=== PATIENT | male | born 1970 | race Caucasian/White ===

== ENCOUNTER 2021-02-20 13:19 | Emergency (ER) | payer OTHER ==
[~2021-02-20] VITALS: Ht 175.3 cm; Wt 90.7 kg
[2021-02-20 13:19] VITALS: BP_SYST 101
--- NOTE | 2021-02-20 13:19 | NUR ---
BROUGHT IN BY [facility], PLACED IN BED #5 AND TRIAGED. REPORT GIVEN TO ROSIE
--- NOTE | 2021-02-20 13:20 | NUR ---
Pt bib ambulance from [facility] with report of ALOC and low oxygen saturation. Pt is AAOX3, PERRLA, speaking full sentences, VSS. Pt with dorantes catheter and IV on RFA. Pt reports his head hurts /10 and he hasnt been sleeping much lately. Pt has right arm deficit with decreased bellman strength and inability to hold arm up. Pt on 2L NC resting in gurney attached to monitor no distress noted. GCS 15
--- NOTE | 2021-02-20 13:25 | NUR ---
BLAIR De La Torre at bedside examining patient.
--- NOTE | 2021-02-20 13:58 | NUR ---
Pt family (Son) at bedside. Reports that father is acting normal to his baseline.
[2021-02-20] MEDS ORDERED: NACL 0.9% 1,000 ML IV ONE (14:00)
--- NOTE | 2021-02-20 14:00 | NUR ---
X-ray at bedside.
--- NOTE | 2021-02-20 14:04 | NUR ---
Lab at bedside.
--- NOTE | 2021-02-20 14:15 | NUR ---
Urine collected and sent to lab.
--- NOTE | 2021-02-20 14:23 | NUR ---
ER at bedside examining patient.
[2021-02-20 14:25] LABS: BASOPHILS % (AUTO) 0.4 % (0.0-2.0); EOSINOPHILS # (AUTO) 0.1 K/uL (0.0-0.4); EOSINOPHILS % (AUTO) 2.2 % (0.0-4.0); HEMATOCRIT 36.3 % (36-54); HEMOGLOBIN 12.2 g/dL (14.0-18.0); LYMPHOCYTES # (AUTO) 1.9 K/uL (1.0-5.5); LYMPHOCYTES % (AUTO) 37.7 % (20.5-51.5); MEAN CORPUSCULAR HEMOGLOBIN 30 pg (27-31); MEAN CORPUSCULAR HGB CONC 34 % (32-36); MEAN CORPUSCULAR VOLUME 89 fL (79.0-98.0); MONOCYTES # (AUTO) 0.3 K/uL (0.0-1.0); MONOCYTES % (AUTO) 5.2 % (1.7-9.3); NEUTROPHILS # (AUTO) 2.7 K/uL (1.8-7.7); NEUTROPHILS % (AUTO) 54.5 % (40.0-70.0); PLATELET COUNT (AUTO) 129 K/uL (130-430); RED BLOOD CELL COUNT(AUTO) 4.08 MIL/uL (4.2-6.2); RED CELL DISTRIBUTION WIDTH 13.2 % (9.0-15.0); WHITE BLOOD COUNT (AUTO) 4.9 K/uL (4.8-10.8)
[2021-02-20 14:35] LABS: BILIRUBIN,URINE NEGATIVE (NEGATIVE); CLARITY/URINE CLEAR (CLEAR); COLOR,URINE YELLOW (YELLOW); GLUCOSE,URINE NEGATIVE (NEGATIVE); KETONES,URINE NEGATIVE (NEGATIVE); LEUKOCYTE ESTERASE ,URINE NEGATIVE (NEGATIVE); NITRITE, URINE NEGATIVE (NEGATIVE); PROTEIN URINE NEGATIVE (NEGATIVE)
[2021-02-20 14:36] LABS: CALCIUM 8.6 mg/dL (8.4-11.0); CREATININE 0.76 mg/dL (0.55-1.30); POTASSIUM 3.9 mmol/L (3.5-5.1)
[2021-02-20 14:37] LABS: BLOOD, URINE TRACE (NEGATIVE)
--- NOTE | 2021-02-20 14:37 | NUR ---
Pt moved to room 2 on [facility] accompanied by staff.
[2021-02-20 14:41] LABS: INR 1.1 (0.80-1.20); PROTHROMBIN TIME 11.2 SECS (9.5-12.5)
[2021-02-20 14:42] LABS: ALBUMIN 3.1 g/dL (3.4-4.8); TOTAL BILIRUBIN 0.2 mg/dL (0.0-1.0)
[2021-02-20 14:47] LABS: BACTERIA,URINE RARE /HPF (None Seen); RBC,URINE 0-3 /HPF (0-3)
[2021-02-20 14:48] LABS: MUCUS,URINE 1+ /LPF (None Seen)
--- NOTE | 2021-02-20 15:51 | NUR ---
[facility] and updated on pt ETA back to facility.
[2021-02-20 16:55] VITALS: BP_SYST 110
--- NOTE | 2021-02-20 16:55 | NUR ---
Patient given written and verbal discharge instructions and verbalizes understanding. ER MD discussed with patient the results and treatment provided. Patient in stable condition. ID arm band removed. Patient educated on pain management and to follow up with PMD. Pain Scale 0/10. Opportunity for questions provided and answered. Medication side effect fact sheet provided.
== END 2021-02-20 16:55 ==
LOC: SED 13:19
DX: I95.9 Hypotension, unspecified (principal)
CPT/HCPCS: 36415; 71045; 80053; 81000; 83605; 84484; 85025; 85610; 85730; 87040; 87086; 93005; 96360; 99285; J7030